=== PATIENT | male | born 1935 | race Hispanic/Latino ===

== ENCOUNTER 2019-01-04 07:22 | Day surgery (SDC) | payer OTHER ==
[2019-01-02 12:10] LABS: BASOPHILS % (AUTO) 0.9 % (0.0-5.0); EOSINOPHILS % (AUTO) 2.8 % (0.0-8.0); HEMATOCRIT 38.8 % (42-54); MEAN CORPUSCULAR HEMOGLOBIN 29.7 pg (27.0-33.0); MEAN CORPUSCULAR HGB CONC 33.4 g/dL (32.0-36.0); MEAN CORPUSCULAR VOLUME 88.9 fL (79-99); MONOCYTES % (AUTO) 7.2 % (3.0-13.0); NEUTROPHILS % (AUTO) 74.1 % (40.0-77.0); PLATELET COUNT (AUTO) 238 K/uL (130-400); RED BLOOD CELL COUNT(AUTO) 4.36 MIL/uL (4.50-6.20); RED CELL DISTRIBUTION WIDTH 15.1 % (11.0-15.5); WHITE BLOOD COUNT (AUTO) 9.2 K/uL (4.8-10.8)
[2019-01-02 12:13] LABS: APPEARANCE,URINE Cloudy (CLEAR); BILIRUBIN,URINE Negative (NEGATIVE); COLOR,URINE Dark Yellow (YELLOW); GLUCOSE, URINE (UA) Negative (NEGATIVE); KETONES,URINE Negative (NEGATIVE); LEUKOCYTE ESTERASE ,URINE Large (NEGATIVE); NITRATE,URINE Negative (NEGATIVE); OCCULT BLOOD,URINE Large (NEGATIVE); PROTEIN,URINE POS 1+ mg/dL (NEGATIVE)
[2019-01-02 12:21] LABS: CREATININE 1.3 mg/dL (0.5-1.5); POTASSIUM 4.6 mmol/L (3.5-5.1)
[2019-01-02 12:29] VITALS: BP 138/72
[2019-01-02 12:32] LABS: INR 1.02 (0.85-1.15); PROTHROMBIN TIME 10.7 SEC (9.6-11.6)
[2019-01-02 12:53] LABS: BACTERIA,URINE Many /HPF (None Seen); RBC,URINE 26-50 /HPF (0-1); SQUAMOUS EPITHELIAL CELL,UR 0-2 /HPF (0-2); WBC,URINE TNTC /HPF (0-1)
--- NOTE | 2019-01-03 10:17 | NUR ---
LABS ABNORMAL UA FAXED TO DR. AMOS:S OFFICE, MESSAGE LEFT WITH MAYRA,AWAITING FOR FURTHER ORDERS
[~2019-01-04] VITALS: Ht 162.6 cm; Wt 71.8 kg
[2019-01-04] VITALS (13 sets, daily range): BP systolic 146–165; BP diastolic 70–78
[~2019-01-04 07:22] MED LIST: AEC81 PO; AMLO5TAB9 PO; LACT10SO PO; LEVO500T2 PO; MULT-1192 PO; TAMS-1 PO
[2019-01-04] MEDS ORDERED: LACTATED RINGERS 1000ML 1,000 ML IV ONE (07:24)
[2019-01-04] MEDS ORDERED: CEFTRIAXONE SODIUM 1 GM IVP ONE (08:00)
[2019-01-04] MEDS ORDERED: GENTAMICIN SULFATE 360 MG in SODIUM CHLORIDE 0.9% 100 ML IV PRN (08:00)
[2019-01-04] MEDS ORDERED: MIDAZOLAM HCL 1 MG/ML 2ML VIAL ONE (08:10)
[2019-01-04] MEDS ORDERED: LIDOCAINE PF 2% 5ML ABBOJECT ONE (08:10)
[2019-01-04] MEDS ORDERED: PROPOFOL 10 MG/ML 20ML VIAL IV ONE (08:10)
[2019-01-04] MEDS ORDERED: FENTANYL CITRATE PF 50 MCG/1 ML 2ML VIAL ONE ×2 (08:10→09:45)
[2019-01-04] MEDS ORDERED: DEXAMETHASONE SOD PHOSPHATE 10MG/ML 1ML VIAL ONE (08:35)
[2019-01-04] MEDS ORDERED: ONDANSETRON HCL 4 MG/2 ML VIAL ONE (08:36)
[2019-01-04] MEDS ORDERED: EPHEDRINE SULFATE 50 MG/ML AMPULE ONE (08:44)
--- NOTE | 2019-01-04 11:25 | NUR ---
RECEIVE PT RECEIVED FROM PACU VIA STRETCHER AWAKE ALERT ORIENTED X3. PT STABLE. 20FR [address] [place] CATH IN PLACE, PENILE DRESSING DRY AND INTACT, NO OOZING NOTED, CBI ONGOING, DRAINING CLEAR PINK OUTPUT, 1000ML. NO CLOTS NOTED. CALL CABRERA WITHIN REACH, DAUGHTER AT BEDSIDE.
--- NOTE | 2019-01-04 11:40 | NUR ---
NOTE HOME F[place] CATH CARE INSTRUCTIONS, CHANGED TO LEG BAG, DEMONSTRATED TO DAUGHTER. VERBALIZED UNDERSTANDING. DRAINED 600ML.
--- NOTE | 2019-01-04 11:55 | NUR ---
DISCHARGE PT DISCHARGED VIA WHEELCHAIR WITH DAUGHTER. STABLE. NO COMPLAINTS MADE. LEG BAG IN PLACE, DRAINING CLEAR PINK URINE. DISCHARGE INSTRUCTIONS GIVEN TO DAUGHTER. F[place] CATHETER CARE DEMONSTRATED, VERBALIZED UNDERSTANDING. PER DAUGHTER, SHE IS VERY FAMILIAR WITH FALLON CATH CARE AT HOME FROM PT'S PREVIOUS.
== END 2019-01-04 11:55 | disposition home or self-care (01) ==
LOC: DAH 07:22
PROVIDERS: ATTEND Urology
DX: N41.1 Chronic prostatitis (principal); N40.1 Benign prostatic hyperplasia with lower urinary tract symptoms; R33.9 Retention of urine, unspecified; I10 Essential (primary) hypertension; R39.14 Feeling of incomplete bladder emptying; E66.9 Obesity, unspecified; I25.2 Old myocardial infarction; K21.9 Gastro-esophageal reflux disease without esophagitis; Z79.82 Long term (current) use of aspirin; Z79.2 Long term (current) use of antibiotics; Z79.899 Other long term (current) drug therapy; Z98.890 Other specified postprocedural states; Z68.27 Body mass index [BMI] 27.0-27.9, adult
CPT/HCPCS: 36415; 52648; 71045; 80048; 81001; 85025; 85610; 87077; 87088; 87186; 93005; 96365; A4215; A4221; A4222; A4223; A4354; A4358; A4606; A4663; J0696; J1100; J1580; J2001; J2250; J2405; J2704; J3010 ×2; J3490; J7030; J7120 ×2